=== PATIENT | male | born 1990 | race Caucasian/White ===

== ENCOUNTER 2016-03-29 21:52 | Emergency (ER) | payer OTHER ==
[~2016-03-29] VITALS: Ht 182.9 cm; Wt 55.8 kg
--- OUTSIDE RECORDS SUMMARY | 2016-03-29 21:59 | XMS REPORT | Continuity of Care Document ---
Author Author [facility] Organization [facility] Address Unknown Phone Unavailable Care Team Providers Care Educator Senior Clinical Name Role Phone NO, LOCAL PHYSICIAN PCP Unavailable Insurance Providers Payer Name Policy Number Subscriber Name Relationship [facility] [id number] Paco Denny 19 Self / Same As Patient Chief Complaint and Reason for Visit Chief Complaint Foreign Body Reason for Visit Foreign body in hand Problems Active Problems Medical Problem Onset Date Status Foreign body in hand Unknown Acute Medications No medication information available. Social History Social History Problem Response Recorded Date/Time Recent Foreign Travel No 10/13/2015 3:11pm Recent Infectious Disease Exposure No 10/13/2015 3:11pm Recent Hopitalizations No 10/13/2015 3:11pm Hospital Discharge Instructions No hospital discharge instructions. Plan of Care Discharge Date 10/13/15 4:36pm Disposition 01 HOME, SELF-CARE Condition at Discharge Improved Instructions/Education Provided Acute Wound Care (ED) Prescriptions See Medication Section Referrals NO,LOCAL PHYSICIAN - Primary Care Physician Additional Instructions/Education Cleaned the right hand with soap and water twice a day. Watch for signs of infection. Return if any signs of infections emergency department. Ibuprofen and/or Tylenol for pain. All discharge instructions reviewed with patient and/or family. Voiced understanding. Functional Status No functional status results. Allergies, Adverse Reactions, Alerts No known allergies. Immunizations Name Given Type DTaP-Tetanus, Dipth, Pertuss P/F (Boostrix) 10/13/15 Administered Vital Signs Acute Vital Signs Vital Response Date/Time Temperature (Fahrenheit) 98.7 degrees F (97.6 - 99.5) 10/13/2015 3:11pm Temperature (Calculated Celsius) 37.21285 degrees C (36.4 - 37.5) 10/13/2015 3:11pm Temperature Source Temporal 10/13/2015 3:11pm Pulse Rate (adult) 108 bpm (60 - 90) 10/13/2015 3:11pm Respiratory Rate 12 bpm (12 - 24) 10/13/2015 3:11pm O2 Sat by Pulse Oximetry 98 % (88 - 100) 10/13/2015 3:11pm Blood Pressure 168/114 mm Hg 10/13/2015 3:11pm Blood Pressure Mean 132 mm Hg 10/13/2015 3:11pm Pain Numeric Pain Scale 5-Moderate Pain 10/13/2015 3:11pm Height (Feet) 6 feet 10/13/2015 3:11pm Height (Inches) 0 inches 10/13/2015 3:11pm Height (Calculated Centimeters) 182.982806 cm 10/13/2015 3:11pm Weight (Pounds) 135 pounds 10/13/2015 3:11pm Weight (Calculated Kilograms) 61.898468 kilograms 10/13/2015 3:11pm Capillary Refill Capillary Refill Less Than 3 Seconds 10/13/2015 3:11pm Height 6 ft 0 in Weight 135 lb Body Mass Index 18.3 kg/m^2 Results No known relevant diagnostic tests, laboratory data and/or discharge summary. Procedures No known history of procedures. Encounters Encounter Location Arrival/Admit Date Discharge/Depart Date Attending Provider Departed Emergency Room [facility] 10/13/15 2:58pm 10/12 4:36pm KEVIN PORTILLO MD Recent Diagnosis
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
[2016-03-29] MEDS ORDERED: LIDOCAINE/EPI 1%-1:100,000 (XYLOCAINE) 20ML INJ ONE (22:15)
[2016-03-29] MEDS ORDERED: CEPH-507 PO (22:58)
[2016-03-29 23:08] VITALS: BP 148/84
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
== END 2016-03-29 23:07 | disposition left against medical advice (07) ==
LOC: EDUNIT# 21:52 → ER 21:55
DX: S01.511A Laceration without foreign body of lip, initial encounter (principal); S00.81XA Abrasion of other part of head, initial encounter; V18.0XXA Pedal cycle driver injured in noncollision transport accident in nontraffic accident, initial encounter; F10.10 Alcohol abuse, uncomplicated; Y93.55 Activity, bike riding; Y99.8 Other external cause status
CPT/HCPCS: 12011; 70450; 70486; 72125

== ENCOUNTER 2016-04-04 11:40 | Emergency (ER) | payer SELFPAY ==
[~2016-04-04] VITALS: Ht 182.9 cm; Wt 55.8 kg
[~2016-04-04 11:40] MED LIST: CEPH-507 PO
--- OUTSIDE RECORDS SUMMARY | 2016-04-04 11:46 | XMS REPORT | Continuity of Care Document ---
Author Author [facility] Organization [facility] Address Unknown Phone Unavailable Care Team Providers Care Customer Experience Leader Name Role Phone NO, LOCAL PHYSICIAN PCP Unavailable Insurance Providers Payer Name Policy Number Subscriber Name Relationship [facility] [id number] Paco Denny 19 Self / Same As [...] - 99.5) 10/13/2015 3:11pm Temperature (Calculated Celsius) 37.97128 degrees C (36.4 - 37.5) 10/13/2015 3:11pm [...] 0 inches 10/13/2015 3:11pm Height (Calculated Centimeters) 182.577051 cm 10/13/2015 3:11pm Weight (Pounds) 135 pounds 10/13/2015 3:11pm Weight (Calculated Kilograms) 61.450667 kilograms 10/13/2015 3:11pm Capillary Refill Capillary Refill Less Than 3 Seconds 10/13/2015 3:11pm Height 6 ft 0 in Weight 135 lb Body Mass Index 18.3 kg/m^2 Results No known relevant diagnostic tests, laboratory data and/or discharge summary. Procedures No known history of procedures. Encounters Encounter Location Arrival/Admit Date Discharge/Depart Date Attending Provider Departed Emergency Room [facility] 10/13/15 2:58pm 10/12 4:36pm KEVIN PORTILLO MD Recent Diagnosis
[2016-04-04 11:58] VITALS: BP 133/90
== END 2016-04-04 11:58 | disposition home or self-care (01) ==
LOC: EDUNIT# 11:40 → ER 11:42
DX: S01.511D Laceration without foreign body of lip, subsequent encounter (principal)

== ENCOUNTER 2021-07-19 13:06 | Emergency (ER) | payer SELFPAY ==
[~2021-07-19] VITALS: Ht 183 cm; Wt 54.0 kg
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
[2021-07-19 13:29] LABS: BASOPHILS # (AUTO) 0.2 10^3/uL (0.0-0.1); BASOPHILS % (AUTO) 2 % (0-10); EOSINOPHILS # (AUTO) 0.3 10^3/uL (0.0-0.3); EOSINOPHILS % (AUTO) 3 % (0-10); HEMATOCRIT 45 % (40-54); HEMOGLOBIN 15.6 g/dL (13.3-17.7); LYMPHOCYTES # (AUTO) 2.3 10^3/uL (1.0-4.0); LYMPHOCYTES % (AUTO) 27 % (12-44); MEAN CORPUSCULAR HEMOGLOBIN 33 pg (25-34); MEAN CORPUSCULAR HGB CONC 35 g/dL (32-36); MEAN CORPUSCULAR VOLUME 95 fL (80-99); MEAN PLATELET VOLUME 8.8 fL (9.0-12.2); MONOCYTES # (AUTO) 1.1 10^3/uL (0.0-1.0); MONOCYTES % (AUTO) 13 % (0-12); NEUTROPHILS # (AUTO) 4.8 10^3/uL (1.8-7.8); NEUTROPHILS % (AUTO) 55 % (42-75); PLATELET COUNT 327 10^3/uL (130-400); WHITE BLOOD COUNT 8.7 10^3/uL (4.3-11.0)
[2021-07-19] MEDS ORDERED: fentaNYL INJ 100 MCG/2 ML AMP IVP ONE ×4 (13:30→16:00)
[2021-07-19 13:40] LABS: ALBUMIN 4.4 GM/DL (3.2-4.5); POTASSIUM 3.5 MMOL/L (3.6-5.0)
[2021-07-19 13:41] LABS: CALCIUM 9.2 MG/DL (8.5-10.1)
[2021-07-19 13:43] LABS: TOTAL PROTEIN 7.2 GM/DL (6.4-8.2)
[2021-07-19 13:44] LABS: BILIRUBIN,TOTAL 0.5 MG/DL (0.1-1.0)
[2021-07-19 13:46] LABS: CREATININE SERUM 0.85 MG/DL (0.60-1.30)
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
[2021-07-19] MEDS ORDERED: KETAMINE 50 MG/5 ML SYRINGE IV ONE (15:15)
[2021-07-19 16:02] VITALS: BP 162/125
== END 2021-07-19 16:05 | disposition short-term general hospital (02) ==
LOC: EDUNIT# 13:06 → ER 13:07
DX: S72.111A Displaced fracture of greater trochanter of right femur, initial encounter for closed fracture (principal); F17.290 Nicotine dependence, other tobacco product, uncomplicated; V19.9XXA Pedal cyclist (driver) (passenger) injured in unspecified traffic accident, initial encounter; Y93.55 Activity, bike riding
CPT/HCPCS: 29505; 36415; 71045; 73502; 80053; 85025; 86141